=== PATIENT | male | born 1945 ===

== ENCOUNTER 2023-08-04 06:17 | Day surgery (SDC) | payer OTHER, SELFPAY ==
[2023-08-04] VITALS (9 sets, daily range): BP systolic 133–165; BP diastolic 65–96; BMI 30.3
[2023-08-04] MEDS: NORMOSOL-R 1000 IV (10:30)
[2023-08-04] MEDS: DILAUDID 0.5 MG IV (15:19)
== END 2023-08-04 16:41 | disposition home or self-care (01) ==
LOC: SDS 06:17
PROVIDERS: ATTENDING PHYSICIAN Otolaryngology
DX: J34.2 Deviated nasal septum (principal); J32.3 Chronic sphenoidal sinusitis; J33.8 Other polyp of sinus; J32.2 Chronic ethmoidal sinusitis; R51.9 Headache, unspecified
CPT/HCPCS: 31288; 30520; 31255; 88304; 88311; 88312